=== PATIENT | male | born 1955 | race Caucasian/White ===

== ENCOUNTER 2017-04-07 09:20 | Emergency (ER) | payer OTHER ==
[~2017-04-07] VITALS: Ht 170.2 cm; Wt 75.0 kg
[2017-04-07 09:37] VITALS: Ht 170.2 cm; Wt 75.0 kg
[2017-04-07] MEDS ORDERED: NICARDipine HCL 30 MG CAPSULE PO ONE ×2 (10:00→13:30)
[2017-04-07] MEDS ORDERED: LORAZEPAM 2 MG INJ IV ONE (10:00)
[2017-04-07] MEDS ORDERED: hydrALAzine 20 MG INJ IV ONE (10:00)
[2017-04-07] MEDS ORDERED: ARGI500T PO (10:53)
[2017-04-07] MEDS ORDERED: UBID1CAP25 PO (10:53)
[2017-04-07] MEDS ORDERED: LISI10TA2 PO (10:53)
--- NOTE | 2017-04-07 12:17 | RADRPT ---
PROCEDURE: CT brain without contrast CLINICAL INDICATION: Head trauma/injury TECHNIQUE: CT of the brain without contrast performed on a multidetector CT scanner, with multiplan ar reformats. One or more of the following dose reduction techniques were used: Automated exposure control, adjustment in mA and / or kV according to patient size, use of iterative reconstructive freddy hnique. CTDIvol = 44 mGy; DLP = 720 mGy-cm. COMPARISON: None available FINDINGS: No acute intracranial hemorrhage is identified. No extra-axial fluid collection is seen. There is no mass effect. No midline shift is identified. Ventricles and sulci are within normal limits for size and configuration There are minimal areas of hypodensity seen in the periventricular - deep white matter which are non specific but suggestive of chronic small vessel ischemic changes. Allen-white differentiation is pre served. Atherosclerotic calcifications of the intracranial internal carotid arteries are noted. Osseous structures are unremarkable. Mastoid air cells and imaged paranasal sinuses grossly clear. IMPRESSION: 1. No evidence of acute intracranial pathology. 2. Minimal chronic small vessel ischemic changes. RPTAT: VV .Steven Henry MD, Date Time Electronically viewed and signed by .Steven Henry MD, on 04/07/2017 12:17 .O/
[2017-04-07] MEDS ORDERED: AMLO-218 PO (13:15)
[2017-04-07] MEDS ORDERED: BENA10TA48 PO (13:15)
--- NOTE | 2017-04-07 13:20 | ERD ---
ER Documentation Chief Complaint Date/Time DATE: 04/07/17 TIME: 13:17 Chief Complaint HTN AND PRESSURE BEHIND LT EYE HPI This is a 61-year-old male complains that when he was walking his dogs last night he felt slightly diaphoretic, more than usual when he walks his dog so he checked his blood pressure his blood pressure was 215/110. The patient has stopped taking his lisinopril because it causes him some decreased libido symptoms. The patient states that he woke up this morning and felt very mild pressure behind his left eye did not have any visual change speech change he has no numbness weakness. He also checks his blood pressure this morning has similar readings. He is here for blood pressure control. No chest pain or shortness of breath no dizziness no palpitations. The patient is followed at [facility] All systems reviewed and are negative except as per history of present illness. Medications Home Meds Active Scripts Benazepril Hcl* (Benazepril Hcl*) 10 Mg Tablet, 10 MG PO DAILY, #30 TAB Prov:ANTHONY BOB DO 04/07/17 Amlodipine Besylate* (Norvasc*) 10 Mg Tablet, 10 MG PO DAILY, #30 TAB Prov:ANTHONY BOB DO 04/07/17 Reported Medications Arginine (Arginine) 500 Mg Tablet, 500 MG PO DAILY, TAB 04/07/17 Lisinopril* (Lisinopril*) 10 Mg Tablet, 10 MG PO DAILY, #30 TAB 04/07/17 Ubidecarenone/Vit E Acetate (CO Q-10 100 MG SOFTGEL) 1 Each Capsule, 1 CAP PO DAILY, CAP 04/07/17 PMhx/Soc History of Surgery: No Anesthesia Reaction: No Hx Neurological Disorder: No Hx Respiratory Disorders: No Hx Cardiac Disorders: No Hx Psychiatric Problems: Yes (depression) Hx Miscellaneous Medical Probl: Yes (htn) Hx Alcohol Use: No Hx Substance Use: No Hx Tobacco Use: No Smoking Status: Never smoker FmHx Family History: No coronary disease Physical Exam Vitals Vital Signs Date Time Temp Pulse Resp B/P Pulse Ox O2 Delivery O2 Flow Rate FiO2 04/07/17 12:21 102 20 175/91 Room Air 04/07/17 09:45 80 18 211/102 100 Room Air 04/07/17 09:37 98.5 98 16 225/112 99 Physical Exam Const: Well-developed, well-nourished Head: Atraumatic, normocephalic Eyes: Normal Conjunctiva, PERRLA, EOMI, normal sclera, no nystagmus ENT: Normal External Ears, Nose and Mouth, moist mucus membranes. Neck: Full range of motion. No meningismus, no lymphadenopathy. Resp: Clear to auscultation bilaterally, no wheezing, rhonchi, rales Cardio: Regular rate and rhythm, no murmurs, S1 S2 present Abd: Soft, non tender x 4, non distended. Normal bowel sounds, no guarding or rebound, no pulsitile abdominal masses or bruits Skin: No petechiae or rashes, no ecchymosis , no maculopapular rash Back: No midline or flank tenderness Ext: No cyanosis, or edema, FROM x 4, normal inspection, neurovascularly intact x 4 Neur: Awake and alert, STR 5/5 x 4, sensation intact x 4, no focal findings, cerebellum intact Psych: Normal Mood and Affect Results 24 hrs Current Medications Medications (Trade) Dose Ordered Sig/Amanda Route PRN Reason Start Time Stop Time Status Last Admin Dose Admin Nicardipine HCl (Cardene) 30 mg ONCE ONCE PO 04/07/17 10:00 04/07/17 10:01 DC 04/07/17 11:01 Hydralazine HCl (Apresoline) 10 mg ONCE ONCE IV 04/07/17 10:00 04/07/17 10:01 DC 04/07/17 11:01 Lorazepam (Ativan) 1 mg ONCE ONCE IV 04/07/17 10:00 04/07/17 10:01 DC 04/07/17 13:16 Nicardipine HCl (Cardene) 30 mg ONCE ONCE PO 04/07/17 13:30 04/07/17 13:31 04/07/17 13:15 Procedures/MDM EKG: Rate/Rhythm: Normal sinus rhythm with left bundle branch block QRS, ST, QT: NORMAL SC, QRS, QT] Impression: [Left bundle branch block PROCEDURE: CT brain without contrast CLINICAL INDICATION: Head trauma/injury TECHNIQUE: CT of the brain without contrast performed on a multidetector CT scanner, with multiplanar reformats. One or more of the following dose reduction techniques were used: Automated exposure control, adjustment in mA and / or kV according to patient size, use of iterative reconstructive technique. CTDIvol = 44 mGy; DLP = 720 mGy-cm. COMPARISON: None available FINDINGS: No acute intracranial hemorrhage is identified. No extra-axial fluid collection is seen. There is no mass effect. No midline shift is identified. Ventricles and sulci are within normal limits for size and configuration There are minimal areas of hypodensity seen in the periventricular - deep white matter which are nonspecific but suggestive of chronic small vessel ischemic changes. Allen-white differentiation is preserved. Atherosclerotic calcifications of the intracranial internal carotid arteries are noted. Osseous structures are unremarkable. Mastoid air cells and imaged paranasal sinuses grossly clear. IMPRESSION: 1. No evidence of acute intracranial pathology. 2. Minimal chronic small vessel ischemic changes. RPTAT: VV .Steven Henry MD, MD Date Time Electronically viewed and signed by .Steven Henry MD, MD on 04/07/2017 12:17 .O/ CC: ANTHONY BOB DO Patient's blood pressure been controlled with Cardene p.o. and hydralazine IV. We will start him on Norvasc and ends up will. Told the patient has an abnormal EKG with a left bundle branch block and this may be old and chronic to follow-up with [facility] to evaluate his left bundle branch Departure Diagnosis: Primary Impression: Hypertension Hypertension type: essential hypertension Qualified Code: I10 - Essential hypertension Condition: Stable Patient Instructions: High Blood Pressure (Hypertension) Referrals: DOCTOR,NOT ON STAFF (PCP) ANTHONY BOB DO April 07, 2017 13:19
[2017-04-07 13:52] VITALS: BP 192/78; PULSE 94; RESP 14; TEMP 98.7
== END 2017-04-07 14:35 | disposition home or self-care (01) ==
LOC: E/R 09:20
DX: I10 Essential (primary) hypertension (principal); R40.2142 Coma scale, eyes open, spontaneous, at arrival to emergency department; R93.0 Abnormal findings on diagnostic imaging of skull and head, not elsewhere classified; R40.2362 Coma scale, best motor response, obeys commands, at arrival to emergency department
CPT/HCPCS: 70450; 93005; 96374; 96375; 99285; J0360; J2060